=== PATIENT | female | born 1945 | race Caucasian/White ===

== ENCOUNTER → 2024-10-05 13:35 | Outpatient (BNVA) | payer MEDICARE, OTHER, SELFPAY | PROVIDERS: Visit Provider Nurse Practitioner | DX: M17.12 Unilateral primary osteoarthritis, left knee (principal); M21.162 Varus deformity, not elsewhere classified, left knee; Z01.818 Encounter for other preprocedural examination | CPT/HCPCS: 73560; 73565; 99204 ==

== ENCOUNTER 2024-10-09 09:53 | Outpatient (CLI) | payer MEDICARE, OTHER, SELFPAY | END 2024-10-09 09:54 | disposition home or self-care (01) | LOC: LAB 09:55 | PROVIDERS: Family Provider Family Medicine; PCP Family Medicine; Visit Provider Nurse Practitioner | DX: Z01.818 Encounter for other preprocedural examination (principal); I49.8 Other specified cardiac arrhythmias; I49.1 Atrial premature depolarization | CPT/HCPCS: 80053; 81000; 81003; 85025; 93005 ==

== ENCOUNTER 2024-10-13 12:05 | Outpatient (CLI) | payer MEDICARE, OTHER, SELFPAY ==
--- NOTE | 2024-10-13 12:45 | CT_ITS ---
WS: [id number] CT LEFT KNEE, NONCONTRAST TECHNIQUE: Noncontrast CT of the LEFT knee to include the LEFT hip and ankle. CLINICAL INFORMATION: left knee pain COMPARISON: None. DLP: 960.[address] scans at [facility] use at least one of these dose optimization techniques: automated exposure control; mA and/or kV adjustment per patient size (includes targeted exams where dose is matched to clinical indication); or iterative reconstruction. FINDINGS: Advanced tricompartmental arthritis LEFT knee worse in the medial joint compartment. Hypertrophic patella. Tiny suprapatellar effusion. Hypertrophic changes along the joint line. Osteopenia. Degenerative arthritis sacroiliac joints. Vascular calcification. Sigmoid diverticulosis. Low-attenuation cystic lesion LEFT adnexa measuring 2.6 x 1.8 cm. This can be further evaluated with ultrasound. CT/CT knee LT [facility] [id number] IMPRESSION: 1. Images obtained for preoperative purposes. 2. Low-attenuation cystic lesion LEFT adnexa measuring 2.6 x 1.8 cm. This can be further evaluated with pelvic ultrasound.
== END 2024-10-13 12:06 | disposition home or self-care (01) ==
LOC: RAD 12:05
PROVIDERS: Family Provider Family Medicine; PCP Family Medicine; Visit Provider Nurse Practitioner
DX: M25.562 Pain in left knee (principal)
CPT/HCPCS: 73700

== ENCOUNTER 2024-10-22 11:07 | Observation (INO) | payer MEDICARE, OTHER, SELFPAY ==
[2024-10-22] VITALS (19 sets, daily range): BP systolic 86–151; BP diastolic 47–80; PULSE 62–97; RESP 16–23; TEMP 36.3–36.8; O2SAT 85–97; BMI 32.3
--- NOTE | 2024-10-22 06:06 | ANES.PREANE2 ---
Pre-Anesthetic Assessment Height/Weight: Height 5 ft 6 in Preop Diagnosis: Knee arthritis Operation Date: 10/22/24 07:00 Proposed Procedures p Sulaiman Robot Total Knee Arthroplasty(Left) - Gloria Vasquez MD Was Beta Kristian taken within 24 hours: N/A Was Clonidine taken within 24 hours: N/A Social Tobacco and No alcohol Exam alert, oriented x 3 and regular rate & rhythm Coarse breath sounds bilaterally Airway Submandibular: within normal limits Cervical ROM: within normal limits Mallampati: Class III Dentition: false Anesthetic Plan ASA status: 3 Anesthesia: General Other: No prior issues with anesthesia NPO since yesterday evening History of TIA Hypertension on amlodipine Carotid stenosis s/p left endarterectomy Current smoker, SpO2 88-90% in preop Labs from 10/09/2024 reviewed acceptable for procedure EKG sinus rhythm with PVCs Plan for spinal anesthesia with spontaneous ventilation. Would like to avoid breathing device if possible Medications/Allergies Home Medications ?Medication ?Instructions ?Recorded ?Confirmed ?Last Taken ?Type amlodipine 10 mg tablet 10 mg PO DAILY 10/05/24 10/21/24 10/22/24 History atorvastatin 80 mg tablet (Lipitor) 80 mg PO DAILY 10/05/24 10/21/24 10/22/24 History cholecalciferol (vitamin D3) 25 25 mcg PO DAILY 10/05/24 10/21/24 10/22/24 History mcg (1,000 unit) capsule aspirin 81 mg tablet 81 mg PO DAILY 10/09/24 10/21/24 10/14/24 History cilostazol 100 mg tablet 100 mg PO BID 10/21/24 10/21/24 10/21/24 History Allergies Allergy/AdvReac Type Severity Reaction Status Date / Time Penicillins Allergy Severe Unresponsiv Verified 10/21/24 14:36 e [facility] Anesthesia Medical History (Updated 10/15/24 @ 14:04 by ANGELO Mo) Primary osteoarthritis of left knee Social History Smoking and tobacco/nicotine status: current some day tobacco/nicotine user
[2024-10-22] MEDS: acetaminophen 1,000 MG/100 ML PIGGYBACK 400 MG IV ×2 (06:25→11:37)
--- NOTE | 2024-10-22 07:04 | W.PM.OPSUD ---
Surgery/Procedure H&P Update DATE OF PROCEDURE: October 22, 2024 DATE H&P PERFORMED: 10/09/24 H&P UPDATE INFORMATION: I have reviewed H&P completed within last 30 days, I have examined patient prior to procedure, No changes to prior documentation, H&P is in [facility] EMR on date indicated and Risks and benefits of the procedure reviewed PREOP DIAGNOSIS: Primary osteoarthritis right knee PLANNED PROCEDURE: Operation Date: 10/22/24 07:00 Proposed Procedures p Sulaiman Robot Total Knee Arthroplasty(Left) - Gloria Vasquez MD Related Problem List Diagnoses 1. Primary osteoarthritis of left knee: 2. 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
[2024-10-22] MEDS: tranexamic acid 1,000 mg/10mL SDV 1000 MG (08:09)
[2024-10-22] MEDS: BUPivacaine liposome 13.3 mg/mL SDV 20 mL 266 MG INFILTRATI (08:14)
[2024-10-22] MEDS: BUPivacaine 0.5% INJ 30 mL XX (08:14)
--- NOTE | 2024-10-22 10:17 | P.OP_ITS ---
Operative Report Date of procedure: October 22, 2024 Pre-op diagnosis: Primary osteoarthritis left knee with varus deformity Post-op diagnosis: Primary osteoarthritis left knee with varus deformity Post-op findings: Significant degenerative osteoarthritis with varus deformity and flexion contracture Procedure done: Left total knee arthroplasty with Sulaiman guidance Implants: The Jame total knee system with a size 4 triathlon beaded cruciate retaining femur left, a triathlon titanium tibial component size 4 beaded, a triathlon X3 tibial bearing CS insert size 4 x 10 mm and a beaded triathlon titanium asymmetric patella size 35 x 10 mm Specimens removed/disposition: Bone, disposed of Pathology: None Surgeon: Gloria Vasquez MD Financial Service Representative: Bridgette Casanova, nurse practitioner, whose services were required for positioning, exposure, placement of the prosthesis, retraction, and wound closure. Anesthesia: Spinal (ASA 3, with MAC) Estimated blood loss (mL): 110 Tourniquet time (min): 0 (Not utilized) IV fluids (mL): 1,000 Urine output (mL): 400 Complications: None Findings: Severe degenerative osteoarthritis with osteophytes, varus deformity, and flexion contracture. Disposition: PACU (Dental floor for postoperative rehabilitation and pain management) Brief History: This 79-year-old woman presents today for left total knee arthroplasty with Sulaiman guidance. Patient was seen in the clinic and she has pain in both of her knees. She had had a right total knee replacement in [place] in 2020. She has had worsening pain in the left knee and wishes to consider proceeding with total knee arthroplasty. Upon discussion in the office, conservative measures have not been of benefit. These measures included corticosteroid injections, bracing, physical therapy, and anti-inflammatories. She had significant interference with activities of daily living. For this reason, she wished to proceed with total knee arthroplasty. Risks and complications were discussed with her. Consents were signed and questions were answered. Procedure: The patient was brought to the operating theater, and after undergoing spinal anesthesia with MAC, ASA 3, the left lower extremity was prepped with Dura-Prep and draped in usual fashion following placement of a tourniquet high on the leg. The leg was then draped free.? Tourniquet was not elevated throughout the surgical procedure. Prior to commencement of the procedure, a surgical pause was performed, and at the time of the surgical pause, we confirmed the site and side of surgery. Additionally, we confirmed the appropriate and timely administration of preoperative antibiotics, clindamycin 600 mg.?The availability of equipment was confirmed, and the patient's identity was verbalized as well. Following the surgical pause, an incision was made centering over the patella continuing proximally and distally as necessary to allow access to the knee joint. Prior to incision, assessment was made of the patient's leg, and there was noted to be varus deformity with a slight flexion contracture. Dissection continued through skin and soft tissues using a scalpel. Hemostasis was obtained using electrocautery. The skin incision was followed by a median parapatellar arthrotomy. The leg was extended and the patella was able to be displaced laterally.? Appropriate arrays and markers were placed in appropriate position for use of the Sulaiman.? Preoperative planning had been accomplished and was discussed in detail with the Sulaiman canvas products sales representative.? Intraoperative mapping of the femur and tibia was accomplished after the arrays were placed.? Internal markers were also placed.? Once we had accomplished the Sulaiman mapping, we began the appropriate resections for placement of the prosthesis.? The plan was for a cruciate retaining right total knee arthroplasty. Once appropriate mapping had been accomplished, retraction was established using manual retraction and the Sulaiman leg positioner and retractors. The knee was evaluated.? There was significant osteoarthritic change as well as a varus deformity and slight flexion contracture.? Intraoperative planning was adjusted based on this preoperative varus deformity as well as balancing maneuvers. Appropriate bone resection was accomplished using the Sulaiman.? Initially, we addressed the tibia, and this was followed by the femur. Osteophytes were removed prior to this portion of the procedure.? We had performed a medial release at the beginning of the procedure to allow for placement of the array.? Proximal tibia was evaluated, and it was felt that appropriate size for the tibia was a size 4.? The size 4 tray was noted to fit nicely with good coverage.? Rim fit was accomplished with the size 4. A trial reduction was accomplished after osteophytes had been removed as well as the medial and lateral menisci.? We had removed the anterior cruciate ligament at the beginning of the case and preserved the posterior cruciate ligament.? Trial reduction was accomplished with a size 4 femoral cruciate retaining component, a size 4 tibial tray and a size 4 CS tibial bearing insert which was 9 mm thickness. The knee was well-balanced with slight laxity. Therefore, we chose to place a final tray that was 10 mm thick with the same tibial tray and femoral components. Alignment was felt to be appropriate as well.? Trial components were removed after the femur had been drilled.? Prior to removal of the tibial tray which had been pinned in position with appropriate rotation as determined by the Sulaiman plan, we broached the tibia.? Subsequently, the 4 drill holes were made for the prosthetic component.? All trial components were removed, and the wound was irrigated.? Plans were made for insertion of the prosthetic components.? Prior to this, the patella was manually prepared.? After resection of the articular surface with the jogging system, it was measured and measured a 35 mm patella.? We resected approximately 8 mm of patella.? Patellar height was restored with the patellar component. Once again, the wound was irrigated. The Tritanium tibia was impacted into position.? The beaded femur was then impacted into position in a cementless fashion. The CS tibial insert was placed prior to placement of the femoral component. The patella was pressed into position with a patellar clamp.? Exparel was injected about the components deep and superficially.? The knee was then copiously irrigated with betadine and saline and suctioned dry. Attention was then directed to closure. Closure was accomplished with 0 Vicryl in the fascial tissues.? The suture line of 0 Vicryl was supplemented with strata fix, #1, with a running suture from proximal to distal and a second running stitch from distal to proximal.? This was followed by Surgiflo and vancomycin powder.? Following this, a 2-0 Strata Fix was used in the subcutaneous tissues, and the skin was closed with 3-0 Strata fix.? Care was taken to assure an excellent subcutaneous as well as skin closure.? A sterile dressing was then placed consisting of Dermabond Prineo, OpSite, ABD, sterile soft roll, and an Irving wrap including over the foot. The patient was returned the Recovery Room in a satisfactory condition. X-rays were obtained and reviewed there.? The patient will be discharged to the floor for postoperative rehabilitation and pain management. Related Problem List Diagnoses 1. Primary osteoarthritis of left knee: 2. 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
--- NOTE | 2024-10-22 10:23 | XR_ITS ---
WS: [id number] Exam: XR knee LT 1-2V [id number] Date/Time of Exam: 10/22/2024 10:27 AM Reason For Exam: Status post left total knee arthroplasty A total knee arthroplasty is in place in excellent position. Postop changes in the adjacent soft tissues. XR/XR knee LT 1-2V [id number] IMPRESSION: 1. LEFT total knee replacement in excellent position.
--- NOTE | 2024-10-22 10:59 | ANE.PACU2 ---
Inpatient post-anesthesia follow up: Airway intact: Yes Vital signs: Temperature 97.4 F Pulse Rate 70 Respiratory Rate 19 Blood Pressure 117/70 Pulse Oximetry 90 Oxygen Delivery Me thod Nasal Cannula Oxygen Flow Rate 3 Fraction of Inspir ed Oxygen Hydration adequate: Yes Nausea and vomiting: No Pain level: 1 Mental status: Baseline
[2024-10-22] MEDS: metoclopramide 5 mg/mL SDV 2 mL 10 MG IV (11:41)
[2024-10-22] MEDS: oxyCODONE 5 mg IR Tab/Cap PO ×2 (11:43→16:12)
[2024-10-22] MEDS: sennosides-docusate Tablet 2 TAB PO (16:32)
[2024-10-22] MEDS: mupirocin oint 22 gm 1 APPLIC NASAL (16:33)
[2024-10-22] MEDS: chlorhexidine gluconate 0.12% Btl 473 mL 30 ML MUCOUS MEM ×2 (16:33→20:32)
--- NOTE | 2024-10-22 21:47 | PC.NURSE ---
Patient refusal of medications: During medication administration pt's iv infiltrated. Pt agreed for a new iv to be placed, 22ga attempted in the right wrist that unsuccessful. Pt then refused anymore pokes , and stated that she'd rather have oral medications and asked for Dr. Vasquez be contacted. 21:[address] Vasquez to inform her of pt's wishes. Dr. Vasquez asked that this nurse try to educate pt on the benefits of intravenous medications to prevent infection but that if pt does not change her mind to change the iv clindamycin 900mg to Clindamycin 600mg every 8 hours for 3 doses po. Order verbally read back to Dr. Vasquez who confirmed that this was correct. Called pharmacy to confirm dosing correct, as per Dr. Vasquez request, doing confirmed with Jeffrey in Pharmacy.
[2024-10-23] VITALS: BP 130/69; PULSE 79; RESP 16; TEMP 37.5; O2SAT 89
[2024-10-23 04:00] VITALS: BP 162/73; PULSE 83; RESP 16; TEMP 37.2; O2SAT 88
[2024-10-23 04:58] LABS: Hematocrit 41.7 % (36-47); Hemoglobin 13.60 g/dL (11.27-16.99); Mean Corpuscular HGB Conc 32.6 g/dL (30-55); Mean Corpuscular Hemoglobin 30.9 pg (27-33); Mean Corpuscular Volume 94.8 fl (85-98); Nucleated Red Blood Cells % 0 %; Platelet Count 223 10^3/cmm (157-399); Red Blood Count 4.40 10^6/uL (3.85-5.65); White Blood Count 12.58 10^3/uL (3.29-11.43)
[2024-10-23 05:23] LABS: Anion Gap 14.1 (5-19); Blood Urea Nitrogen 14 mg/dL (8-23); Calcium 9.4 mg/dL (8.5-10.5); Carbon Dioxide 24 mmol/L (22-29); Chloride 103 mmol/L (98-107); Creatinine Clr Calc Pharmacy 66.8140; Glucose 161 mg/dL (65-115); Osmolality Calculated 288 mOsm/kg (285-295); Potassium 4.1 mmol/L (3.5-5.1); Sodium 137 mmol/L (136-145)
[2024-10-23] MEDS: sennosides-docusate Tablet 2 TAB PO (06:09)
--- OUTSIDE RECORDS SUMMARY | 2024-10-23 06:50 | XMS_ITS | Patient Health Record ---
Author Organization [facility] Address [address] [place] [address] Care Team Providers Care Certified Vehicle Fire Investigator Name Role Phone Lupillo Stephenson Primary Care Provider [phone] Allergies Allergen (clinical drug ingredient) Drug/Non Drug Allergy documented on EMR Reaction Allergy Type Onset Date Status Penicillin Unknown Drug Allergy Active Reason For Referral No Information Medications Medication SIG (Take, Route, Frequency, Duration) Notes Start Date End Date Status amLODIPine Besylate 10 MG 1 tablet Orall y Once a day Active Vitamin D3 25 MCG (1000 UT) 1 tablet Ora lly Once a day Active Atorvastatin Calcium 80 MG 1 tablet Oral ly Once a day Active Cilostazol 100 MG 1 tablet 30 minutes before or 2 hours after breakfast and dinner Orally Twice a day Active Immunizations Vaccine Route Administration Date Status Comme nts Influenza, seasonal, injectable (split), for 3 yrs and up OTH Other/Miscel laneous 12/15/2018 Not Administered NotGiven Reason : Declined by Patient/Skye n Pneumococcal polysaccharide PPV23 OTH Other/Miscel laneous 12/15/2018 Not Administered NotGiven Reason : Declined by Patient/Skye n Social History Tobacco Use: Social History Observation Description Date Details (start date - stop date) Current Smoker NA - NA Tobacco Use/Smoking Question Answer Notes Are you a: current every day smoker Problems Problem Type SNOMED Code ICD Code Onset Dates Problem Status W/U Status Risk Notes Problem Psoriasis (7734680) Psoriasis (L40.9) Inactive confirmed Comment:Has tried topical treatment without any benefit. She has a friend that takes injections (stelara) However, I don't see a good reason to start stelara. I dont' think she has psoriatic arthritis. THis all looks psoriasis to me. I started her on methotrexate. She is tolerating the methotrexate which is helping. She isn't having any side effects from the methotrexate. I will go ahead and increase her methotrexate to 8 tablets a week. SHe will continue the folic acid. I will check her blood tests today. 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) Inactive confirmed Problem Inflamed seborrheic keratosis (596110853) SEBORRHEIC KERATOSES, INFLAMED (L82.0) Inactive confirmed Problem Smoker (03521316) SMOKER (F17.200) Inactive confirmed Problem Disorder of skin AND/OR subcutaneous tissue (97515984) SKIN LESIONS (L98.9) Inactive confirmed Problem Osteoarthritis (321450341) OSTEOARTHRITIS (M19.90) Inactive confirmed Problem Polyp of vocal cord or larynx (680581743) VOCAL CORD POLYPS (J38.1) Inactive confirmed Comment:discu ssed possible necessity of staged resection if anterior comissure involved, Problem Obese class I (finding) (662528153785086 ) CLASS 1 OBESITY (E66.9) Inactive confirmed Description:O BESITY, CLASS I (BMI 30.0-34.9) Problem Functional assessment (64742313) ENCOUNTER FOR RISK AND FUNCTIONAL ASSESSMENT OF PATIENT (Z13.9) Inactive confirmed Description: R ISK AND FUNCTIONAL ASSESSMENT Problem Multiple seborrheic keratoses (856660694) SEBORRHEIC KERATOSES (L82.1) Inactive confirmed Plan Of Treatment No Information Insurance Providers Payer Name Payer Address Payer Phone Subscriber Number Group Number Insured Name Patient Relationship to Insured Coverage Start Date Coverage End Date [employer] MEDICARE PART B [address] [address] [place] [address] [id number] BROWN, CHANDRAKANT Self - patient is the insured FOR LIFE [address] [place] [phone] [id number] JOSELIN ARIAS Other Medical (General) History Medical History History ICD Code Problems: CHRONIC HYPERPLASTIC LARYNGITI S, ProblemStatus: Active, ENCOUNTER FOR RISK AND FUNCT IONAL ASSESSMENT OF PATIENT, DESCRIPTION: RISK AND FUNCTIONAL ASSESSMENT, ProblemStatus: Active, No Known Problems, ProblemStatus: Inacti ve, OSTEOARTHRITIS, ProblemStatus: Active, Problems Reconciled, ProblemStatus: Acti ve, SEBORRHEIC KERATOSES, ProblemStatus: Act daya, SMOKER, ProblemStatus: Active, VOCAL CORD POLYPS, ProblemStatus: Active , Stroke Surgical History Surgery Date(Month/Year) LARYNOSCOPY+TUMR EXC+SCOPE 05.21 Knee Replacement, Total, ProblemStatus: Active, : Right, Hemorrhoidectomy, ProblemStatus: Active,
--- OUTSIDE RECORDS SUMMARY | 2024-10-23 06:50 | XMS_ITS | Clinical Summary ---
Author Organization [employer] [facility] Address [address] [place] [address] Care Team Providers Care In Store Marketer Name Role Phone Malick Cosby MD Primary Care Provider [phone] Allergies Active Allergy Reactions Criticality Noted Date Comments Penicillins Rash Medium 06/27/2020 Medications ergocalciferol, vitamin D2, (VITAMIN D ORAL) Take 25 mg by mouth 5 times daily. Active aspirin (ECOTRIN EC) 81 mg Tablet, Delayed Release (E.C.) Take 81 mg by mouth daily. Active amLODIPine (NORVASC) 10 mg tabletIndication s:History of CVA (cerebrovascular accident),HTN (hypertension), benign Take 1 Tablet (10 mg) by mouth daily. 90 Tablet 3 5 Active atorvastatin (LIPITOR) 80 mg tabletIndication s:Hemiplegia and hemiparesis following cerebral infarction affecting left non-dominant side (CMS/HCC),Histor y of CVA (cerebrovascular accident),Periph eral vascular disease, unspecified Take 1 Tablet (80 mg) by mouth daily with supper. 100 Tablet 3 5 Active cilostazoL (PLETAL) 100 mg TabletIndication s:Peripheral vascular disease, unspecified Take 1 Tablet (100 mg) by mouth 2 times daily before meals. 180 Tablet 3 5 Active clobetasoL (TEMOVATE) 0.05 % CreamIndications :Plaque psoriasis Apply to affected area 2 times daily. 60 Gram 1 5 Active fluticasone propionate (FLONASE) 50 mcg/spray [place], Suspension nasal inhalerIndicatio ns:Allergic rhinitis, unspecified seasonality, unspecified trigger SHAKE LIQUID AND USE 2 SPRAYS IN EACH NOSTRIL DAILY 16 Gram 2 5 Active Active Problems Problem Noted Date Diagnosed Date Tobacco dependence due to cigarettes 04/20/2024 Vitamin D deficiency 04/20/2024 Plaque psoriasis 04/20/2024 Presence of right artificial knee joint 04/20/19 Osteoarthritis of left knee 04/20/2024 Occlusion and stenosis of right carotid artery 0 04/20/2024 Obesity (BMI 30.0-34.9) 04/20/2024 Peripheral vascular disease, unspecified 025 Hyperlipidemia 04/20/2024 History of carotid endarterectomy 04/20/2024 Hemiplegia and hemiparesis f ollowing cerebral infarction affecting left non-dominant side 04/20/2024 Panlobular emphysema 04/20/2024 Bilateral carotid artery stenosis 04/20/2024 Aneurysm of infrarenal abdominal aorta Benign mass of adrenal gland 04/20/2024 Calculus of bile duct withou t cholecystitis and without obstruction 04/20/2024 History of latent tuberculosis 04/20/2024 History of CVA (cerebrovascular accident) 2024 HTN (hypertension), benign 04/20/2024 Resolved Problems Problem Noted Date Diagnosed Date Resolved Date Simple chronic bronchitis 04/20/2024 Encounters Date Type Department Care Team Description 09/09/2024 External Device Data [facility] ABSTRACTION Provider, Abstract 09/09/2024 External Device Data [facility]STRACTION Provider, Abstract 09/09/2024 Orders Only [address] [address] Malick Cosby MD Primary osteoarthritis of left knee (Primary Dx) 09/08/[address] [phone] Malick Cosby MD Needs Orders Written; Patient Communication 08/19/[address] [phone] Malick Cosby MD Allergic rhinitis, unspecified seasonality, unspecified trigger 08/12/2024 External Device Data [facility] ABSTRACTION Provider, Abstract 08/11/2024 External Device Data [facility] ABSTRACTION Provider, Abstract from Last 3 Months Social History Tobacco Use Types Packs/Day Years Used Date Smoking Tobacco: Every Day Cigarettes Smokeless Tobacco: Never Tobacco Cessation:Ready to Q uit: Not Asked; Counseling Given: Not Answered Comments Unknown Sex and Gender Information Value Date Recorded Sex Assigned at Not on file Legal Sex Female 5:19 PM CDT Gender Identity Not on file Sexual Orientation Not on file Last Filed Vital Signs Vital Sign Reading Time Taken Comments Blood Pressure 110/68 05/05/2024 1:23 PM CDT Pulse 93 05/05/2024 1:23 PM CDT Temperature 36.6 C (97.9 F) 05/05/2024 1:23 PM CDT Respiratory Rate 18 05/05/2024 1:23 PM CDT Oxygen Saturation 89% 05/05/2024 1:23 PM CDT Inhaled Oxygen Concentration - - Weight 90.7 kg (200 lb) 05/05/2024 1:23 PM CDT Height 167.6 cm (5' 6 ) 05/05/2024 1:23 PM CDT Body Mass Index 32.28 05/05/2024 1:23 PM CDT Plan of Treatment Upcoming Encounters Date Type Department Care Team ([facility] st Contact Info) Description 11/10/2024 2:00 PM CDT Office Visit [facility] [address] [phone] Malick Cosby MD [address] [phone] Health Maintenance Due Date Last Done Comments DTAP/TDAP/TD VACCINES (1 - Tdap) 1966 PNEUMOCOCCAL VACCINE 50+ YEARS (1 of 2 - PCV) 04/21/18 [birth year] Traditional Medicare (ACO) Annual Wellness Visit 04/21 ZOSTER VACCINE (1 of 2) 1997 OSTEOPOROSIS SCREENING 2012 RSV VACCINE (60+ or ) (1 - 1-dose 75+ series) 2022 INFLUENZA VACCINE (#1) 2024 Insurance MEDICARE PART A AND B [facility] Care Teams In Store Marketer Relationship Specialty Start Date End Date Malick Cosby MD [address] [phone] PCP - General Family Practice 04/20/24
[2024-10-23 07:48] VITALS: BP 139/76; PULSE 96; RESP 18; TEMP 36.9; O2SAT 90
[2024-10-23] MEDS: HYDROcodone-acetaminophen 5-325 mg Tablet 1 TAB PO (08:11)
[2024-10-23] MEDS: multivitamin therapeutic Tablet 1 TAB PO (08:11)
[2024-10-23 09:20] VITALS: O2SAT 85; O2SAT 91
--- NOTE | 2024-10-23 10:04 | PC.SOCIAL ---
*IMM* updated, IMM dated, initialled and placed in chart. Patient received copy.
--- NOTE | 2024-10-23 10:07 | PC.CHAP ---
Pastoral Care Encounter/Spiritual Assessment Type of Contact [] Declined advertising photographer visit [] Patient/Family/Request visit [] Outpatient visit [] Follow-up visit [] Physician referral [] Code/Alert [x] Routine visit [] Staff referral [] Actively dying [] Patient sleeping [x] Family support [] [] Out of room [] Palliative care [] [] Receiving care in room [] Pre-surgical visit [] Trauma [] Long length of stay [] ICU visit [] Other: Relational/Emotional Strength [x] Patient feels connected with others/family/visitors/staff [] Distress [] Loneliness/isolation [] Abandonment Spirituality of Patient [x] Person of Alejandra [] Attends Holiness of their Alejandra [x] Believes in Prayer [] Reads Bible or Sikhism materials [] There are Spiritual issues to be addressed Thermal Technician Interventions [x] Prayer [x] Active listening [] Non-anxious presence [x] Spiritual/emotional support [] Crisis/trauma care [] Spiritual counseling [] Bereavement support [] Provided bereavement packet [] Provided Bible/devotional materials [] Provided toy/stuffed animal, coloring book to patient or family member [] Provided Communion [] Anointing/[facility] [] Salvation [x] Completed spiritual assessment [] Other: Impact on Illness or Injury [] Angry [] Fearful [] Anxious [] Often cries [] Exhaustion [] Unable to work [] Unable to attend moravian [] Unable to walk/stand [] Unable to read [] Unable to drive [] Unable to eat/drink [] Unable to sleep [] Unable to be with family [] Patient intubated [] Other: Summary Time spent with patient 5 min
[2024-10-23 11:27] VITALS: BP 128/65; PULSE 92; RESP 21; TEMP 36.7; O2SAT 85
--- NOTE | 2024-10-23 14:08 | P.DS_ITS ---
Discharge Providers Date of Admission: 10/22/24 11:07 Date of Discharge: October 23, 2024 Attending Provider at Admission: Gloria Vasquez MD Attending Provider at Discharge: Gloria Vasquez MD Primary Care Provider: Malick Fernandezno Diagnoses at Discharge Discharge Diagnosis 1. Primary osteoarthritis of left knee: 2. 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 Status post total left knee replacement not using cement: Reason for Visit Reason for Visit: M17.12 Brief History: This 79-year-old woman presents today for left total knee arthroplasty with Sulaiman guidance. Patient was seen in the clinic and she has pain in both of her knees. She had had a right total knee replacement in [place] in 2020. She has had worsening pain in the left knee and wishes to consider proceeding with total knee arthroplasty. Upon discussion in the office, conservative measures have not been of benefit. These measures included corticosteroid injections, bracing, physical therapy, and anti-inflammatories. She had significant interference with activities of daily living. For this reason, she wished to proceed with total knee arthroplasty. Risks and complications were discussed with her. Consents were signed and questions were answered. Hospital Course Hospital Course This 79-year-old woman was admitted for same-day surgery for left total knee arthroplasty. She previously has undergone right total knee arthroplasty a pproximately 10+ years ago at another facility. She has done well with this and wishes to proceed with left total knee arthroplasty. She has significant limitations in her activities of daily living and therefore, we will schedule her for the above procedure. She did not tolerate initial pain medication, but she is able to tolerate hydrocodone, and this was used for her pain which caused it to be well-controlled. She had good sessions with physical therapy. Dressings were removed, and the wound was benign. There was no evidence of DVT. Physical Exam Const: COMMON NORMALS: no acute distress, average body habitus, patient oriented x3 and alert GENERAL APPEARANCE: cooperative and comfortable ORIENTATION/CONSCIOUSNESS: Yes awake HENMT: COMMON NORMALS: normocephalic and atraumatic HEAD & SCALP: normocephalic and atraumatic Eye: GENERAL EYE: appearance normal, both eyes and all related structures Chest: COMMONS NORMALS: normal inspection of the chest Resp: COMMON NORMALS: normal respiratory effort EFFORT & INSPECTION: Yes able to speak in complete sentences and Yes symmetric chest movement Extremity: LEFT LOWER EXTREMITY: Yes knee joint (Large outer dressing removed, OpSite left in place) Left knee: Yes inspection (Slight ecchymosis), Yes palpation (No significant discomfort), Yes ROM (Not evaluated) and Yes neurovascular exam (Intact distally without evidence of DVT) Neuro: COMMON NORMALS: patient oriented x3 SENSORIUM/ORIENTATION: Yes alert Psych: COMMON NORMALS: mental status grossly normal APPEARANCE: Yes grossly normal ATTITUDE: Yes calm and Yes engaged ATTENTION/CONCENTRATION: Yes attention grossly intact Skin: COMMON NORMALS: no rashes or lesions noted GENERAL SKIN EXAM: no rashes or lesions noted Urinary Catheter Management: Vann: Cath Placed During This Visit: yes, but has since been removed by the nurse Reason for Continuing Indwelling Catheter: Decision to DC Catheter Urinary Catheter Date of Insertion: 10/22/24 Urinary Catheter Time of Insertion: 07:50 Date Urinary Catheter Removed: 10/23/24 Time Urinary Catheter Discontinued: 06:00 Discharge Data Studies Completed and Pending Completed Studies During Hospitalization Category Date Time Status XR knee LT 1-2V [id number] Routine Exams 10/22/24 10:23 Completed Radiology Impressions Knee X-Ray 10/22/24 10:23 IMPRESSION: 1. LEFT total knee replacement in excellent position. Laboratory Results WBC 12.58 10^3/uL (3.29-11.43) H 10/23/24 04:42 RBC 4.40 10^6/uL (3.85-5.65) 10/23/24 04:42 Hgb 13.60 g/dL (11.27-16.99) 10/23/24 04:42 Hct 41.7 % (36-47) 10/23/24 04:42 MCV 94.8 fl (85-98) 10/23/24 04:42 MCH 30.9 pg (27-33) 10/23/24 04:42 MCHC 32.6 g/dL (30-55) 10/23/24 04:42 RDW 14.8 % (12.1-15.1) 10/23/24 04:42 Plt Count 223 10^3/cmm (157-399) 10/23/24 04:42 MPV 9.6 fL (7.4-10.4) 10/23/24 04:42 Neut % (Auto) 74.1 % 10/23/24 04:42 Lymph % (Auto) 14.5 % 10/23/24 04:42 Casey % (Auto) 10.7 % 10/23/24 04:42 Eos % (Auto) 0.2 % 10/23/24 04:42 Baso % (Auto) 0.2 % 10/23/24 04:42 Neut # (Auto) 9.33 10^3/uL (1.8-7.7) H 10/23/24 04:42 Lymph # (Auto) 1.8 10^3/uL (0.8-4.8) 10/23/24 04:42 Casey # (Auto) 1.3 10^3/uL (0.2-0.9) H 10/23/24 04:42 Eos # (Auto) 0.0 10^3/uL (0.0-0.8) 10/23/24 04:42 Baso # (Auto) 0.0 10^3/uL (0.0-0.1) 10/23/24 04:42 Nucleated RBC % (auto) 0 % 10/23/24 04:42 Nucleated RBCs # 0.0 /100WBC 10/23/24 04:42 Sodium 137 mmol/L (136-145) 10/23/24 04:42 Potassium 4.1 mmol/L (3.5-5.1) 10/23/24 04:42 Chloride 103 mmol/L (98-107) 10/23/24 04:42 Carbon Dioxide 24 mmol/L (22-29) 10/23/24 04:42 Anion Gap 14.1 (5-19) 10/23/24 04:42 BUN 14 mg/dL (8-23) 10/23/24 04:42 Creatinine 0.6 mg/dL (0.5-0.9) 10/23/24 04:42 GFR Calculation Not Reportable 10/23/24 04:42 Glucose 161 mg/dL (65-115) H 10/23/24 04:42 Calculated Osmolality 288 mOsm/kg (285-295) 10/23/24 04:42 Calcium 9.4 mg/dL (8.5-10.5) 10/23/24 04:42 Vitals Last Vital Signs Temp 98.1 F 10/23/24 11:27 Pulse 92 10/23/24 11:27 Resp 21 H 10/23/24 11:27 BP 128/65 10/23/24 11:27 Pulse Ox 85 L 10/23/24 11:27 O2 Del Method Nasal Cannula 10/23/24 11:27 O2 Flow Rate 2 10/23/24 09:20 Discharge Plan Discharge Patient Disposition: Home Health Service Condition: Stable Prescriptions: New hydrocodone-acetaminophen 5-325 mg Tablet 1 tab PO Q4H PRN (Reason: Moderate Pain) 7 Days Qty: 40 0RF aspirin 325 mg Tablet,Delayed Release (Dr/Ec) 325 mg PO DAILY 30 Days Qty: 30 0RF celecoxib 200 mg Capsule 200 mg PO 1XD 30 Days Qty: 30 0RF Continued atorvastatin [Lipitor] 80 mg tablet 80 mg PO DAILY amlodipine 10 mg tablet 10 mg PO DAILY cholecalciferol (vitamin D3) 25 mcg (1,000 unit) capsule 25 mcg PO DAILY cilostazol 100 mg Tablet 100 mg PO BID Held aspirin 81 mg tablet 81 mg PO DAILY Hold Instructions: May resume 81 mg aspirin after completing 30 days of 325 mg aspirin Discharge Order = DC NOW: Discharge Order (Routine); Ordered 10/23/24 Ordered By: Gloria Vasquez Other Ambulatory Orders: DME: Oxygen (Order) Location: None Selected Ordered By: Gloria Vasquez DME: Walker (Order) Location: None Selected Ordered By: Gloria Vasquez Referrals: [facility] [place]Outside] [facility] [Outside] Gloria Vasquez MD [Physician, Orthopedics] - 2 weeks Referral Note: We have notified your physician's clinic of the need for a follow-up appointment to be scheduled. If you have not heard from them within the next 2 business days, please call them directly. Discharge Diet: Advance as tolerated and Usual diet Discharge Activity: Increase activity as tolerated, Limit activity as instructed, Use walker/crutches as instructed and As per PT/OT instructions Patient Instructions: Hydrocodone/Acetaminophen (By mouth), Aspirin (By mouth), Celecoxib (By mouth), Acute Wound Care (DC), Knee Arthroscopy (DC), Opioid Safety, Post Anesthesia Care, Patient Portal & Jayda Instructions Activity Restrictions/Additional Instructions: Weight-bear as tolerated. Ambulation, gait training, and range of motion per physical therapy. Use ambulatory aids as needed. You may shower and get your knee wet, but do not submerge your knee in water. If your dressing begins to leak, please remove it. Otherwise, leave the dressing in place until it comes off on its own or in the office. 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
--- NOTE | 2024-10-23 14:21 | PC.NURSE ---
Discharge Note Patient discharged to home via private vehicle accompanied by sister. Discharge instructions reviewed with patient and/or applications sales representative. Mobile pharmacy medications and/or prescriptions provided. Belongings/home medications returned.
[2024-10-23 14:22] VITALS: BP 128/65; PULSE 92; RESP 21; TEMP 36.7; O2SAT 87
== END 2024-10-23 15:23 | disposition home health service (06) ==
LOC: MEDSURG 12:01
PROVIDERS: Admitting Provider Specialist; PCP Family Medicine; Visit Provider Specialist
PROC: 8E0Y0CZ Robotic Assisted Procedure of Lower Extremity, Open Approach (ICD-10-PCS; CPT 27447; principal; 2024-10-22 07:00)
DX: M17.12 Unilateral primary osteoarthritis, left knee (principal); M21.162 Varus deformity, not elsewhere classified, left knee; Z79.82 Long term (current) use of aspirin; Z86.73 Personal history of transient ischemic attack (TIA), and cerebral infarction without residual deficits; I10 Essential (primary) hypertension; I65.29 Occlusion and stenosis of unspecified carotid artery; F17.200 Nicotine dependence, unspecified, uncomplicated
CPT/HCPCS: 27447; 20985; 36415; 51702; 73560; 80048; 85025; 94760; 97110; 97116; 97161; 97166; 97530; A4216; C1776; G0378; J0131; J0666; J2371; J2704; J2765; J3373; J3490; J7030; J9999

== ENCOUNTER → 2024-11-06 11:35 | Outpatient (BNVA) | payer MEDICARE, OTHER, SELFPAY | PROVIDERS: PCP Family Medicine; Visit Provider Nurse Practitioner | DX: Z96.652 Presence of left artificial knee joint (principal) | CPT/HCPCS: 81001; 87086 ==

== ENCOUNTER → 2024-12-14 14:21 | Outpatient (BNVA) | payer MEDICARE, OTHER, SELFPAY | PROVIDERS: PCP Family Medicine; Visit Provider Nurse Practitioner | DX: Z98.890 Other specified postprocedural states (principal); Z96.652 Presence of left artificial knee joint; M54.10 Radiculopathy, site unspecified | CPT/HCPCS: 73560; 73565; 99024 ==

== ENCOUNTER → 2025-01-08 09:52 | Outpatient (BNVA) | payer MEDICARE, OTHER, SELFPAY | PROVIDERS: PCP Family Medicine; Visit Provider Nurse Practitioner | DX: Z96.652 Presence of left artificial knee joint (principal) | CPT/HCPCS: 81001 ==

== ENCOUNTER → 2025-01-13 09:11 | Outpatient (BNVA) | payer MEDICARE, OTHER, SELFPAY | PROVIDERS: PCP Family Medicine; Visit Provider Specialist | DX: Z98.890 Other specified postprocedural states (principal); M25.462 Effusion, left knee; Z96.652 Presence of left artificial knee joint | CPT/HCPCS: 20605; 20610; 87070; 87075; 87205; 99024 ==